=== PATIENT | female | born 1935 | race African-American/Black ===

== ENCOUNTER 2023-04-14 00:59 | Inpatient (IN) | payer OTHER ==
[~2023-04-14] VITALS: Ht 167.6 cm; Wt 84.8 kg
[2023-04-14] VITALS (34 sets, daily range): BP systolic 103–187; BP diastolic 58–110; PULSE 81–111; RESP 12–27; TEMP 97.4–98.7; O2SAT 96
[2023-04-14] MEDS ORDERED: ONDANSETRON HCL 4MG/2ML INJ IV STA (01:29)
[2023-04-14] MEDS ORDERED: METHYLPREDNISOLONE SOD SUCC 125MG/2ML (ACT-O-VIAL) IV STA (01:29)
[2023-04-14] MEDS ORDERED: ALBUTEROL (0.083%) 2.5MG/3ML NEB HHN STA (01:29)
[2023-04-14] MEDS ORDERED: IPRATROPIUM BROMIDE (0.02%) 0.5MG/2.5ML NEB HHN STA (01:29)
[2023-04-14] MEDS ORDERED: MORPHINE SULFATE 4 MG/ML CPJ (NOT FOR IM USE) IV STA (01:29)
[2023-04-14] MEDS ORDERED: PROPOFOL 10MG/ML 100ML 100 ML IV NR (01:30)
[2023-04-14] MEDS ORDERED: SODIUM CHLORIDE 0.9% 1,000 ML IV ONE (01:30)
[2023-04-14] MEDS ORDERED: MIDAZOLAM HCL 100 MG in DEXT 5% WATER 80 ML IV ONE (01:30)
[2023-04-14] MEDS ORDERED: SUCCINYLCHOLINE CHLORIDE 200MG/10ML IV ONE (01:30)
[2023-04-14] MEDS ORDERED: MAGNESIUM 2 G PREMIX 50 ML IV ONE (01:30)
[2023-04-14] MEDS ORDERED: PROPOFOL 10MG/ML 100ML 100 ML IV ONE (01:30)
[2023-04-14] MEDS ORDERED: ETOMIDATE 2MG/ML 10ML VIAL IV ONE (01:45)
[2023-04-14 01:59] LABS: HEMATOCRIT. 40.1 % (36.0-48.0); HEMOGLOBIN. 13.3 g/dL (12.0-16.0); MEAN CORPUSCULAR HEMOGLOBIN 31.3 pg (28.0-32.0); MEAN CORPUSCULAR HGB CONC 33.1 g/dL (31.0-37.0); MEAN CORPUSCULAR VOLUME 94.7 fL (81.0-99.0); MEAN PLATELET VOLUME 8.1 fl (7.4-10.4); PLATELET 220 x1000/uL (130-400); RED BLOOD CELL COUNT 4.24 mill/uL (4.2-5.4); RED CELL DISTRIBUTION WIDTH 13.8 % (11.6-14.6); WHITE BLOOD COUNT 9.3 x1000/uL (4.5-11.0)
[2023-04-14 02:05] LABS: DIFFERENTIAL COMMENT 1
[2023-04-14 02:10] LABS: D-DIMER 0.91 mg/L FEU (<0.50); INR 1.1; PROTHROMBIN TIME 11.6 sec (9.6-11.0)
[2023-04-14 02:12] LABS: CHLORIDE 109 mEq/L (98-107); INDEX HEMOLYSI 4 (1-3); INDEX ICTERIC 1 (1-4); INDEX LIPEMIC 1 (1-3); SODIUM 140 mEq/L (136-145)
[2023-04-14 02:23] LABS: ALANINE AMINOTRANSFERASE 20 IU/L (13-61); ALBUMIN 3.4 g/dL (3.4-5.0); ASPARTATE AMINOTRANSFERASE 26 IU/L (15-37); BILIRUBIN TOTAL 0.9 mg/dL (0.1-1.0); CALCIUM 7.9 mg/dL (8.5-10.1); CARBON DIOXIDE 25 mEq/L (21-32); CREATININE 0.6 mg/dL (0.6-1.3); GLUCOSE 203 mg/dL (70-105); NT PRO B-TYPE NATRIURETIC PEP 100 pg/mL (5-125); PROTEIN TOTAL 6.8 g/dL (6.0-8.3); TROPONIN I HIGH SENSITIVITY 15 ng/L (<54); UREA NITROGEN BLOOD 6 mg/dL (7-21)
[2023-04-14 02:37] LABS: PLATELET ESTIMATE NORMAL; POTASSIUM 3.4 mEq/L (3.5-5.1)
[2023-04-14 02:42] LABS: LACTIC ACID 5.2 mmol/L (0.4-2.0)
[2023-04-14 02:56] LABS: BG BASE EXCESS -5.5 mmol/L (-2.0-2.0); BG DEOXYHEMOGLOBIN 2.2 % (0.0-5.0); BG FRACTION INSPIRED OXYGEN 50; BG HCO3 ACT 21.6 mmol/L (22.0-26.0); BG METHEMOGLOBIN 0.1 % (0.0-1.5); BG OXYGEN SATURATION 97.8 % (92.0-98.5); BG OXYHEMOGLOBIN 97.7 % (94.0-97.0); BG PCO2 47.8 mmHg (35.0-45.0); BG PH 7.272 (7.350-7.450); BG PO2 112.4 mmHg (75.0-100.0); BG SAMPLE SITE RIGHT RADIAL; BG TOTAL HEMOGLOBIN 13.8 g/dL (12.0-18.0); BG VENT MODE VENT - AC
[2023-04-14 04:12] LABS: TROPONIN I HIGH SENSITIVITY 30 ng/L (<54)
[2023-04-14] MEDS ORDERED: CLONIDINE 0.1MG TABLET PO PRN (05:00)
[2023-04-14] MEDS ORDERED: IPRATROPIUM/ALBUTEROL 0.5-3(2.5)MG/3ML NEB HHN PRN (05:00)
[2023-04-14] MEDS ORDERED: POTASSIUM CHLORIDE INJ 40 MEQ in DEXT 5% WATER 250 ML IV ONE (05:00)
[2023-04-14] MEDS ORDERED: ONDANSETRON HCL 4MG/2ML INJ IV PRN (05:00)
[2023-04-14] MEDS ORDERED: GUAIFENESIN 200MG/10ML SUGAR FREE UDC PO PRN (05:00)
[2023-04-14] MEDS ORDERED: DOCUSATE SODIUM 100MG CAPSULE PO PRN (05:00)
[2023-04-14] MEDS ORDERED: ACETAMINOPHEN 325MG TABLET PO PRN ×2 (05:00)
[2023-04-14] MEDS ORDERED: DEXTROSE 50% WATER 50ML SYRINGE IV PRN (05:00)
[2023-04-14] MEDS ORDERED: NALOXONE 4 MG in SODIUM CHLORIDE 0.9% 246 ML IV ONE (05:00)
[2023-04-14] MEDS ORDERED: MAGNESIUM/ALUMINUM HYDROXIDE/SIMETHICONE 30ML UDC PO PRN (05:00)
[2023-04-14] MEDS: BLOOD SUGAR DIAGNOSTIC STRIP TEST SCH ×5 (06:30→21:00)
[2023-04-14] MEDS: KCL 20MEQ/100ML X 2 FOR TOTAL KCL 40MEQ/200ML IV SCH ×2 (06:41→09:59)
[2023-04-14] MEDS: SODIUM CHLORIDE 0.45% 1,000 ML IV SCH ×2 (06:42→18:06)
[2023-04-14] MEDS: INSULIN LISPRO 100 UNITS/ML SUBCUT SCH ×5 (07:00→21:00)
[2023-04-14] MEDS: METHYLPREDNISOLONE SOD SUCC 40MG/ML (ACT-O-VIAL) IV SCH ×4 (07:06→23:49)
[2023-04-14 07:13] LABS: AMMONIA 46 uMol/L (<32)
[2023-04-14 07:20] LABS: LACTIC ACID 4.6 mmol/L (0.4-2.0)
[2023-04-14 07:25] LABS: PHOSPHORUS 2.7 mg/dL (2.5-4.9)
[2023-04-14 08:03] LABS: BG BASE EXCESS 0.8 mmol/L (-2.0-2.0); BG CARBOXYHEMOGLOBIN 0.2 % (0.5-1.5); BG DEOXYHEMOGLOBIN 0.8 % (0.0-5.0); BG FRACTION INSPIRED OXYGEN 50; BG HCO3 ACT 24.1 mmol/L (22.0-26.0); BG METHEMOGLOBIN 0.4 % (0.0-1.5); BG OXYGEN SATURATION 99.2 % (92.0-98.5); BG OXYHEMOGLOBIN 98.6 % (94.0-97.0); BG PCO2 34.6 mmHg (35.0-45.0); BG PO2 164.2 mmHg (75.0-100.0); BG SAMPLE SITE RIGHT RADIAL; BG TOTAL HEMOGLOBIN 14.4 g/dL (12.0-18.0); BG VENT MODE VENT - AC
[2023-04-14] MEDS: IPRATROPIUM/ALBUTEROL 0.5-3(2.5)MG/3ML NEB HHN SCH ×3 (08:21→20:16)
[2023-04-14] MEDS ORDERED: LORAZEPAM 2MG/ML CPJ IV PRN (08:30)
[2023-04-14] MEDS ORDERED: HYDRALAZINE 20MG/ML VIAL IV PRN (08:45)
[2023-04-14] MEDS: ENOXAPARIN 40MG/0.4ML SYR SUBCUT SCH (08:53)
[2023-04-14] MEDS ORDERED: SODIUM CHLORIDE 0.9% 1000ML BAG (SEPSIS BOLUS) IV ONE (09:30)
[2023-04-14] MEDS ORDERED: SODIUM CHLORIDE 0.9% 2,000 ML IV SCH (09:30)
[2023-04-14 11:41] LABS: HEMATOCRIT 39.9 % (36.0-48.0); HEMOGLOBIN 13.7 g/dL (12.0-16.0); MEAN CORPUSCULAR HGB CONC 34.3 g/dL (31.0-37.0); MEAN CORPUSCULAR VOLUME 93.3 fL (81.0-99.0); PLATELET 199 x1000/uL (130-400); RED BLOOD CELL COUNT 4.28 mill/uL (4.2-5.4); RED CELL DISTRIBUTION WIDTH 13.5 % (11.6-14.6); WHITE BLOOD COUNT 8.7 x1000/uL (4.5-11.0)
[2023-04-14 11:49] LABS: CALCIUM 8.4 mg/dL (8.5-10.1); CARBON DIOXIDE 25 mEq/L (21-32); CHLORIDE 111 mEq/L (98-107); GLUCOSE 157 mg/dL (70-105); INDEX HEMOLYSI 4 (1-3); INDEX ICTERIC 1 (1-4); INDEX LIPEMIC 1 (1-3); SODIUM 140 mEq/L (136-145); UREA NITROGEN BLOOD 8 mg/dL (7-21)
[2023-04-14 11:54] LABS: CREATININE 0.5 mg/dL (0.6-1.3)
[2023-04-14 12:15] LABS: POTASSIUM 4.2 mEq/L (3.5-5.1)
[2023-04-14 13:03] LABS: BG BASE EXCESS -2.9 mmol/L (-2.0-2.0); BG CARBOXYHEMOGLOBIN 0.3 % (0.5-1.5); BG DEOXYHEMOGLOBIN 1.1 % (0.0-5.0); BG HCO3 ACT 22.3 mmol/L (22.0-26.0); BG METHEMOGLOBIN 0.5 % (0.0-1.5); BG OXYGEN SATURATION 98.9 % (92.0-98.5); BG OXYHEMOGLOBIN 98.1 % (94.0-97.0); BG PCO2 40.6 mmHg (35.0-45.0); BG PH 7.358 (7.350-7.450); BG PO2 137.2 mmHg (75.0-100.0); BG SAMPLE SITE RIGHT RADIAL; BG TOTAL HEMOGLOBIN 14.6 g/dL (12.0-18.0); BG VENT MODE VENT - CPAP
[2023-04-14] MEDS: LORATADINE 10MG TABLET PO SCH (14:52)
[2023-04-14] MEDS ORDERED: MONTELUKAST SODIUM 10MG TABLET PO SCH (17:00)
[2023-04-14 17:23] LABS: INDEX HEMOLYSI 3 (1-3)
[2023-04-14 17:30] LABS: CREATINE KINASE 252 IU/L (26-192)
[2023-04-14 23:43] LABS: CLARITY URINE CLEAR (CLEAR); COLOR URINE YELLOW (YELLOW); GLUCOSE URINE NEGATIVE (NEGATIVE); KETONES URINE 1+ (NEGATIVE); LEUKOCYTE ESTERASE URINE NEGATIVE (NEGATIVE); NITRITE URINE NEGATIVE (NEGATIVE); OCCULT BLOOD URINE 1+ (NEGATIVE); PH URINE 5.5 (4.5-8.0); PROTEIN URINE NEGATIVE (NEGATIVE); SPECIFIC GRAVITY URINE 1.015 (1.005-1.030); UROBILINOGEN URINE 0.2 E.U./dL (0.2-1.0)
[2023-04-14 23:46] LABS: BACTERIA URINE NONE SEEN; SQUAMOUS EPITHELIAL CELL URINE NONE SEEN /lpf (RARE/1+); YEAST URINE NONE SEEN
[2023-04-15] VITALS (18 sets, daily range): BP systolic 108–159; BP diastolic 54–97; PULSE 83–110; RESP 17–24; TEMP 97.8–98.7; O2SAT 97–98
[2023-04-15] LABS: *AMPHETAMINES SCREEN URINE NEGATIVE (NEGATIVE); *BARBITURATES SCREEN URINE NEGATIVE (NEGATIVE); *BENZODIAZEPINES SCREEN URINE PRESUMTIVE POSITIVE (NEGATIVE); *COCAINE SCREEN URINE NEGATIVE (NEGATIVE); CANNABINOID URINE SCREEN NEGATIVE (NEGATIVE); ECSTASY MDMA SCREEN URINE NEGATIVE (NEGATIVE); METHADONE URINE SCREEN NEGATIVE (NEGATIVE); OPIATES URINE SCREEN NEGATIVE (NEGATIVE); PHENCYCLIDINE URINE SCREEN NEGATIVE (NEGATIVE)
[2023-04-15] MEDS: IPRATROPIUM/ALBUTEROL 0.5-3(2.5)MG/3ML NEB HHN SCH ×2 (01:56→08:32)
[2023-04-15 02:05] LABS: WBC URINE 0-2 /hpf (0-2)
[2023-04-15] MEDS: METHYLPREDNISOLONE SOD SUCC 40MG/ML (ACT-O-VIAL) IV SCH ×2 (05:37→12:05)
[2023-04-15 07:26] LABS: HEMATOCRIT. 36.8 % (36.0-48.0); HEMOGLOBIN. 12.5 g/dL (12.0-16.0); MEAN CORPUSCULAR HEMOGLOBIN 31.8 pg (28.0-32.0); MEAN CORPUSCULAR HGB CONC 33.9 g/dL (31.0-37.0); MEAN CORPUSCULAR VOLUME 93.8 fL (81.0-99.0); MEAN PLATELET VOLUME 8.8 fl (7.4-10.4); PLATELET 194 x1000/uL (130-400); RED BLOOD CELL COUNT 3.92 mill/uL (4.2-5.4); RED CELL DISTRIBUTION WIDTH 13.6 % (11.6-14.6); WHITE BLOOD COUNT 11.8 x1000/uL (4.5-11.0)
[2023-04-15] MEDS: INSULIN LISPRO 100 UNITS/ML SUBCUT SCH ×2 (07:34→13:20)
[2023-04-15] MEDS: BLOOD SUGAR DIAGNOSTIC STRIP TEST SCH ×2 (07:34→12:05)
[2023-04-15 07:44] LABS: DIFFERENTIAL COMMENT 1
[2023-04-15 08:00] LABS: CHLORIDE 111 mEq/L (98-107); INDEX HEMOLYSI 1 (1-3); INDEX ICTERIC 1 (1-4); INDEX LIPEMIC 1 (1-3); POTASSIUM 4.2 mEq/L (3.5-5.1); SODIUM 140 mEq/L (136-145)
[2023-04-15] MEDS: SODIUM CHLORIDE 0.45% 1,000 ML IV SCH (08:14)
[2023-04-15 08:15] LABS: ALANINE AMINOTRANSFERASE 17 IU/L (13-61); ALBUMIN 3.1 g/dL (3.4-5.0); ASPARTATE AMINOTRANSFERASE 18 IU/L (15-37); BILIRUBIN TOTAL 0.7 mg/dL (0.1-1.0); CALCIUM 8.3 mg/dL (8.5-10.1); CARBON DIOXIDE 25 mEq/L (21-32); CHOLESTEROL 107 mg/dL (<200); CREATININE 0.6 mg/dL (0.6-1.3); GLUCOSE 120 mg/dL (70-105); HDL CHOLESTEROL 88 mg/dL (40-59); LDL CHOLESTEROL 25 mg/dL (5-100); PROTEIN TOTAL 6.1 g/dL (6.0-8.3); T4 FREE 1.19 ng/dL (0.76-1.46); THYROID STIMULATING HORMONE 0.17 uIU/mL (0.36-3.74); TRIGLYCERIDE 54 mg/dL (0-150); UREA NITROGEN BLOOD 11 mg/dL (7-21)
[2023-04-15] MEDS: LORATADINE 10MG TABLET PO SCH (09:19)
[2023-04-15] MEDS: ENOXAPARIN 40MG/0.4ML SYR SUBCUT SCH (09:20)
[2023-04-15] MEDS ORDERED: PIPERACILLIN/TAZOBACTAM 3.375 G in DEXTROSE 5% WATER 50 ML IV SCH (09:30)
[2023-04-15] MEDS ORDERED: VANCOMYCIN 1,750 MG in DEXT 5% WATER 500 ML IV NR (10:00)
[2023-04-15 10:09] LABS: PLATELET ESTIMATE NORMAL
[2023-04-16] MEDS ORDERED: VANCOMYCIN 1G PREMIX 200 ML IV SCH (10:00)
== END 2023-04-15 19:07 | disposition short-term general hospital (02) | DRG 208 ==
LOC: EDSEX 00:59 → ER 00:59 → MICUSO 03:23 → CVICU 05:00
PROVIDERS: ADMIT Internal Medicine; ATTEND Internal Medicine
PROC: 5A1935Z Respiratory Ventilation, Less than 24 Consecutive Hours (ICD-10-PCS; principal; 2023-04-14)
PROC: 0BH17EZ Insertion of Endotracheal Airway into Trachea, Via Natural or Artificial Opening (ICD-10-PCS; 2023-04-14)
DX: J96.01 Acute respiratory failure with hypoxia (principal); G92.8 Other toxic encephalopathy; J45.901 Unspecified asthma with (acute) exacerbation; E87.20 Acidosis, unspecified; E44.1 Mild protein-calorie malnutrition; J96.02 Acute respiratory failure with hypercapnia; Z68.30 Body mass index [BMI] 30.0-30.9, adult; E87.6 Hypokalemia; D72.10 Eosinophilia, unspecified; E78.5 Hyperlipidemia, unspecified; E83.51 Hypocalcemia; J44.9 Chronic obstructive pulmonary disease, unspecified; Z20.822 Contact with and (suspected) exposure to COVID-19
CPT/HCPCS: 36415; 36600; 71045; 80048; 80053; 80061; 80305; 81003; 82140; 82375; 82550; 82805; 82962; 83036; 83605; 83735; 83880; 84100; 84145; 84439; 84443; 84484; 85025; 85027; 85379; 87070; 87077; 87186; 87426; 87804; 93005; 93970; 94003; 94640; 99291; J0360; J1650; J2060; J2250; J2270; J2405; J2543; J2704; J2920; J2930; J3370; J3475; J3480; J7030; J7060; A4315